=== PATIENT | male | born 1960 | race Caucasian/White ===

== ENCOUNTER 2020-08-29 11:23 | Inpatient (IN) | payer OTHER ==
[2020-08-29] MEDS ORDERED: Iopamidol-370 76% 500 ML 1 ML ONE (12:05)
[2020-08-29] MEDS ORDERED: Morphine 4 MG/ML VIAL ONE (12:07)
[2020-08-29 12:22] LABS: #Basophils 0.1 thou/uL (0.0-0.2); #Lymphocytes 1.5 thou/uL (1.20-3.40); #Neutrophils 15.9 thou/uL (1.40-6.50); %Basophils 0.3 % (0.0-1.0); %Eosinophils 0.2 % (0.0-10.0); %Lymphocytes 7.8 % (21.0-51.0); %Monocytes 5.6 % (0.0-10.0); %Neutrophils 86.2 % (42.0-75.0); Hemoglobin 14.2 g/dL (14.0-18.0); Mean Corpuscular HGB CONC 34.6 g/dL (32.0-36.0); Mean Corpuscular Hemoglobin 32.3 pg (27.0-31.0); Mean Corpuscular Volume 93.5 fL (78.0-98.0); Mean Platelet Volume 7.6 fL (7.4-10.4); Platelet Count 360 thou/uL (130-400); RBC Distribution Width 13.9 % (11.5-14.5); Red Blood Cell (RBC) Count 4.38 mill/uL (4.70-6.10); White Blood Cell (WBC) Count 18.5 thou/uL (4.8-10.8)
[2020-08-29 12:43] LABS: ALT (SGPT) 8 U/L (8-55); AST (SGOT) 11 U/L (5-34); Albumin 4.3 g/dL (3.4-4.8); Alkaline Phosphatase 85 U/L (40-110); Anion Gap 15 mmol/L (10-20); BUN (Urea Nitrogen) 14 mg/dL (8.4-25.7); Calc. Creatinine Clearance 0 mL/min (70-130); Calcium 9.7 mg/dL (7.8-10.44); Carbon Dioxide 25 mmol/L (23-31); Chloride 105 mmol/L (98-107); Globulin 3.5 g/dL (2.4-3.5); Glucose 115 mg/dL (80-115); Potassium 3.5 mmol/L (3.5-5.1); Protein, Total 7.8 g/dL (5.8-8.1); Sodium 141 mmol/L (136-145)
[2020-08-29 13:05] LABS: CKMB 0.9 ng/mL (0-6.6)
[2020-08-29 13:56] LABS: Bilirubin Negative (Negative); Blood, Urine Negative (Negative); Clarity Clear (Clear); Glucose, Urine (Dipstick) Normal (Negative); Ketone, Urine Negative (Negative); Leukocyte Negative Leu/uL (Negative); Nitrite Negative (Negative); Protein, Urine (Dipstick) 10 mg/dL (Neg-Trace); Urobilinogen Normal mg/dL (Less than 2)
[2020-08-29 13:57] LABS: Specific Gravity, Urine 1.049 (1.002-1.036)
[2020-08-29] MEDS ORDERED: HYDROmorphone 0.5 MG/0.5 ML SYRINGE ONE (14:25)
[2020-08-29] MEDS ORDERED: Ondansetron PF 4 MG/2 ML Vial ONE (14:25)
[2020-08-29 15:56] LABS: Lactic Acid 0.9 mmol/L (0.5-2.2)
[2020-08-29] MEDS ORDERED: Acetaminophen 650 MG Suppository PR PRN (16:31)
[2020-08-29] MEDS ORDERED: Acetaminophen 325 MG TAB PO PRN (16:31)
[2020-08-29 16:33] LABS: Troponin I Less than 0.010 ng/mL (< 0.028)
[2020-08-29 18:04] VITALS: BMI 19.5
[2020-08-29 18:56] LABS: Troponin I 0.019 ng/mL (< 0.028)
[2020-08-29] MEDS ORDERED: Lidocaine 5% Patch TD SCH (19:00)
[2020-08-29] MEDS: Morphine 2 MG/ML VIAL SLOW IVP PRN (20:01)
[2020-08-29] MEDS: Acetaminophen 500 MG TAB PO PRN (20:02)
[2020-08-29] MEDS: Atorvastatin Calcium 40 MG TAB PO SCH (20:03)
[2020-08-29] MEDS: Nicotine 14 MG PATCH TD SCH (20:03)
[2020-08-29] MEDS: Ketorolac Tromethamine 10 MG TAB PO SCH (20:03)
[2020-08-30] MEDS: Morphine 2 MG/ML VIAL SLOW IVP PRN ×7 (00:31→23:56)
[2020-08-30] MEDS: Ketorolac Tromethamine 10 MG TAB PO SCH ×4 (01:43→15:45)
[2020-08-30] MEDS: Acetaminophen 500 MG TAB PO PRN (04:33)
[2020-08-30 04:43] LABS: #Basophils 0.1 thou/uL (0.0-0.2); #Eosinphils 0.2 thou/uL (0.0-0.7); #Lymphocytes 2.6 thou/uL (1.20-3.40); #Monocytes 0.9 thou/uL (0.11-0.59); #Neutrophils 4.9 thou/uL (1.40-6.50); %Basophils 1.2 % (0.0-1.0); %Eosinophils 1.9 % (0.0-10.0); %Monocytes 9.8 % (0.0-10.0); %Neutrophils 57.1 % (42.0-75.0); Hemoglobin 13.2 g/dL (14.0-18.0); Mean Corpuscular HGB CONC 34.4 g/dL (32.0-36.0); Mean Corpuscular Hemoglobin 32.5 pg (27.0-31.0); Mean Corpuscular Volume 94.6 fL (78.0-98.0); Mean Platelet Volume 7.2 fL (7.4-10.4); Platelet Count 283 thou/uL (130-400); Red Blood Cell (RBC) Count 4.06 mill/uL (4.70-6.10); White Blood Cell (WBC) Count 8.7 thou/uL (4.8-10.8)
[2020-08-30 05:12] LABS: Anion Gap 11 mmol/L (10-20); BUN (Urea Nitrogen) 13 mg/dL (8.4-25.7); Calc. Creatinine Clearance 83 mL/min (70-130); Calcium 8.7 mg/dL (7.8-10.44); Carbon Dioxide 23 mmol/L (23-31); Cardiac Risk 3.2 (Less than 4.5); Chloride 107 mmol/L (98-107); Cholesterol 143 mg/dl (< 200 Desired); Glucose 87 mg/dL (80-115); HDL Cholesterol 45 mg/dL (>60 Neg Risk); LDL Cholesterol, Calculated 81 mg/dL; Potassium 3.3 mmol/L (3.5-5.1); Sodium 138 mmol/L (136-145); Triglycerides 83 mg/dL (Less than 150)
[2020-08-30] MEDS: Aspirin 81 mg Enteric Coated Tablet PO SCH (07:36)
[2020-08-30] MEDS ORDERED: HYDROmorphone 2 MG/ML VIAL SLOW IVP SCH (10:15)
[2020-08-30] MEDS ORDERED: Magnevist 469MG/ML 20 ML VIAL ONE (11:06)
[2020-08-30] MEDS: HYDROcodone/Acetaminophen 5/325 mg Tablet PO PRN ×4 (11:34→23:56)
[2020-08-30] MEDS ORDERED: Potassium Chloride 20 MEQ TAB PO SCH (15:45)
[2020-08-30] MEDS: Sodium Chloride 0.9% 1,000 ML IV SCH (19:57)
[2020-08-30] MEDS: Atorvastatin Calcium 40 MG TAB PO SCH (19:58)
[2020-08-30] MEDS: Nicotine 14 MG PATCH TD SCH (23:08)
[2020-08-31] MEDS: Ketorolac Tromethamine 10 MG TAB PO SCH ×4 (02:57→16:17)
[2020-08-31] MEDS: HYDROcodone/Acetaminophen 5/325 mg Tablet PO PRN ×5 (04:05→21:09)
[2020-08-31] MEDS: Morphine 2 MG/ML VIAL SLOW IVP PRN ×5 (04:06→21:11)
[2020-08-31] MEDS: Sodium Chloride 0.9% 1,000 ML IV SCH ×3 (04:07→21:04)
[2020-08-31 05:03] LABS: #Basophils 0.1 thou/uL (0.0-0.2); #Eosinphils 0.3 thou/uL (0.0-0.7); #Lymphocytes 2.9 thou/uL (1.20-3.40); #Monocytes 0.7 thou/uL (0.11-0.59); %Basophils 1.1 % (0.0-1.0); %Eosinophils 4.3 % (0.0-10.0); %Monocytes 9.6 % (0.0-10.0); Hemoglobin 12.8 g/dL (14.0-18.0); Mean Corpuscular HGB CONC 32.5 g/dL (32.0-36.0); Mean Corpuscular Hemoglobin 30.5 pg (27.0-31.0); Mean Corpuscular Volume 94.1 fL (78.0-98.0); Mean Platelet Volume 7.2 fL (7.4-10.4); Platelet Count 290 thou/uL (130-400); RBC Distribution Width 13.8 % (11.5-14.5); Red Blood Cell (RBC) Count 4.18 mill/uL (4.70-6.10)
[2020-08-31 05:21] LABS: Anion Gap 15 mmol/L (10-20); BUN (Urea Nitrogen) 17 mg/dL (8.4-25.7); Calc. Creatinine Clearance 87 mL/min (70-130); Calcium 8.6 mg/dL (7.8-10.44); Carbon Dioxide 20 mmol/L (23-31); Chloride 110 mmol/L (98-107); Glucose 75 mg/dL (80-115); Potassium 3.8 mmol/L (3.5-5.1); Sodium 141 mmol/L (136-145)
[2020-08-31] MEDS: Metoprolol Tartrate 25 MG TAB PO SCH ×2 (07:44→21:07)
[2020-08-31] MEDS: Aspirin 81 mg Enteric Coated Tablet PO SCH (07:44)
[2020-08-31] MEDS ORDERED: HYDROmorphone 0.5 MG/0.5 ML SYRINGE SLOW IVP SCH (10:45)
[2020-08-31] MEDS ORDERED: Iopamidol-370 76% 500 ML 1 ML ONE (11:28)
[2020-08-31] MEDS ORDERED: Sucralfate 1 GM TAB PO PRN (13:16)
[2020-08-31] MEDS: Gabapentin 400 MG CAP PO SCH ×2 (14:15→21:06)
[2020-08-31] MEDS: AMOXicillin 250 MG CAP PO SCH (21:05)
[2020-08-31] MEDS: Atorvastatin Calcium 20 MG TAB PO SCH (21:06)
[2020-08-31] MEDS: Atorvastatin Calcium 40 MG TAB PO SCH (21:06)
[2020-08-31] MEDS: Nicotine 14 MG PATCH TD SCH (21:19)
[2020-09-01] MEDS: Ketorolac Tromethamine 10 MG TAB PO SCH ×5 (00:47→20:14)
[2020-09-01] MEDS: HYDROcodone/Acetaminophen 5/325 mg Tablet PO PRN ×2 (01:43→06:38)
[2020-09-01] MEDS: Morphine 2 MG/ML VIAL SLOW IVP PRN ×3 (01:43→11:04)
[2020-09-01] MEDS: Sodium Chloride 0.9% 1,000 ML IV SCH ×2 (02:43→11:04)
[2020-09-01 04:50] LABS: #Basophils 0.1 thou/uL (0.0-0.2); #Eosinphils 0.5 thou/uL (0.0-0.7); #Lymphocytes 3.1 thou/uL (1.20-3.40); #Monocytes 0.9 thou/uL (0.11-0.59); %Basophils 1.4 % (0.0-1.0); %Eosinophils 6.3 % (0.0-10.0); %Monocytes 11.2 % (0.0-10.0); %Neutrophils 40.1 % (42.0-75.0); Hemoglobin 12.5 g/dL (14.0-18.0); Mean Corpuscular HGB CONC 34.6 g/dL (32.0-36.0); Mean Corpuscular Hemoglobin 32.8 pg (27.0-31.0); Mean Corpuscular Volume 94.8 fL (78.0-98.0); Mean Platelet Volume 7.7 fL (7.4-10.4); Platelet Count 262 thou/uL (130-400); RBC Distribution Width 13.9 % (11.5-14.5); Red Blood Cell (RBC) Count 3.82 mill/uL (4.70-6.10); White Blood Cell (WBC) Count 7.6 thou/uL (4.8-10.8)
[2020-09-01 05:12] LABS: Anion Gap 14 mmol/L (10-20); BUN (Urea Nitrogen) 14 mg/dL (8.4-25.7); Calc. Creatinine Clearance 93 mL/min (70-130); Calcium 8.2 mg/dL (7.8-10.44); Carbon Dioxide 17 mmol/L (23-31); Chloride 113 mmol/L (98-107); Glucose 78 mg/dL (80-115); Potassium 4.1 mmol/L (3.5-5.1); Sodium 140 mmol/L (136-145)
[2020-09-01] MEDS: Metoprolol Tartrate 25 MG TAB PO SCH ×2 (09:22→20:17)
[2020-09-01] MEDS: Amitriptyline HCl 25 MG TAB PO SCH (09:22)
[2020-09-01] MEDS: Gabapentin 400 MG CAP PO SCH ×3 (09:22→20:15)
[2020-09-01] MEDS: Aspirin 81 mg Enteric Coated Tablet PO SCH (09:22)
[2020-09-01] MEDS: Tamsulosin HCl 0.4 MG CAP PO SCH (09:22)
[2020-09-01] MEDS: AMOXicillin 250 MG CAP PO SCH ×3 (09:22→20:11)
[2020-09-01] MEDS ORDERED: Fentanyl 100 MCG/2 ML VIAL SLOW IVP PRN ×2 (13:42→18:11)
[2020-09-01] MEDS: Pregabalin 50 MG CAP PO SCH ×2 (15:05→20:13)
[2020-09-01] MEDS ORDERED: Methocarbamol 500 MG TAB PO PRN (16:55)
[2020-09-01] MEDS: Atorvastatin Calcium 20 MG TAB PO SCH (20:11)
[2020-09-01] MEDS: HYDROcodone/Acetaminophen 10/325 mg Tablet PO PRN (20:15)
[2020-09-02] MEDS: Nicotine 14 MG PATCH TD SCH (05:21)
[2020-09-02] MEDS: HYDROcodone/Acetaminophen 10/325 mg Tablet PO PRN ×3 (05:23→14:29)
[2020-09-02 05:28] LABS: Hemoglobin 12.9 g/dL (14.0-18.0); Mean Corpuscular HGB CONC 33.5 g/dL (32.0-36.0); Mean Corpuscular Hemoglobin 31.8 pg (27.0-31.0); Mean Platelet Volume 7.5 fL (7.4-10.4); Platelet Count 286 thou/uL (130-400); RBC Distribution Width 13.8 % (11.5-14.5); Red Blood Cell (RBC) Count 4.05 mill/uL (4.70-6.10); White Blood Cell (WBC) Count 6.2 thou/uL (4.8-10.8)
[2020-09-02 05:51] LABS: Anion Gap 15 mmol/L (10-20); BUN (Urea Nitrogen) 16 mg/dL (8.4-25.7); Calc. Creatinine Clearance 88 mL/min (70-130); Calcium 8.7 mg/dL (7.8-10.44); Carbon Dioxide 21 mmol/L (23-31); Chloride 108 mmol/L (98-107); Glucose 90 mg/dL (80-115); Potassium 3.8 mmol/L (3.5-5.1); Sodium 140 mmol/L (136-145)
[2020-09-02] MEDS: Ketorolac Tromethamine 10 MG TAB PO SCH ×3 (06:11→15:28)
[2020-09-02] MEDS: Gabapentin 400 MG CAP PO SCH ×2 (07:57→15:27)
[2020-09-02] MEDS: Aspirin 81 mg Enteric Coated Tablet PO SCH (07:57)
[2020-09-02] MEDS: Metoprolol Tartrate 25 MG TAB PO SCH (07:58)
[2020-09-02] MEDS: Amitriptyline HCl 25 MG TAB PO SCH (07:58)
[2020-09-02] MEDS: Tamsulosin HCl 0.4 MG CAP PO SCH (07:58)
[2020-09-02] MEDS: Pregabalin 50 MG CAP PO SCH ×2 (07:58→15:27)
[2020-09-02] MEDS: AMOXicillin 250 MG CAP PO SCH ×2 (07:59→15:26)
[2020-09-02] MEDS ORDERED: Iopamidol-370 76% 500 ML 1 ML ONE (09:03)
[2020-09-02] MEDS ORDERED: hydrALAZINE 25 MG TAB PO SCH (09:14)
[2020-09-02] MEDS ORDERED: Lisinopril 5 MG TAB PO SCH (09:30)
[2020-09-02 16:42] VITALS: BP 182/87; TEMP 97.7
[2020-09-02] MEDS ORDERED: Lidocaine 5% Patch TD SCH (17:00)
[2020-09-03] MEDS ORDERED: Lidocaine Patch Removal TOP SCH (05:00)
[2020-09-03] MEDS ORDERED: Lisinopril 5 MG TAB PO SCH (09:00)
== END 2020-09-02 17:45 | disposition home or self-care (01) | DRG 308 ==
LOC: ERS 11:23 → 2SW 15:25 → OBSVTOIN 08-31 14:22
PROVIDERS: ADMIT Internal Medicine; ATTEND Internal Medicine
DX: R00.0 Tachycardia, unspecified (principal); E43 Unspecified severe protein-calorie malnutrition; Z68.1 Body mass index [BMI] 19.9 or less, adult; I95.1 Orthostatic hypotension; I42.9 Cardiomyopathy, unspecified; R91.1 Solitary pulmonary nodule; I77.810 Thoracic aortic ectasia; Z20.822 Contact with and (suspected) exposure to COVID-19; E78.5 Hyperlipidemia, unspecified; M27.2 Inflammatory conditions of jaws; M47.816 Spondylosis without myelopathy or radiculopathy, lumbar region; G89.29 Other chronic pain; R77.8 Other specified abnormalities of plasma proteins; L57.0 Actinic keratosis; Z86.73 Personal history of transient ischemic attack (TIA), and cerebral infarction without residual deficits; Z86.19 Personal history of other infectious and parasitic diseases; Z90.49 Acquired absence of other specified parts of digestive tract; Z87.891 Personal history of nicotine dependence; Z79.899 Other long term (current) drug therapy
CPT/HCPCS: 36415; 70450; 70487; 70553; 71260; 71275; 72050; 72072; 72125; 74174; 74177; 80048; 80053; 80061; 81003; 82306; 82533; 82553; 83605; 83735; 83880; 84146; 84443; 84484; 85025; 85027; 93005; 93306; 95712; 95819; 95957; 96374; 96375; 96376; A9579; G0378; J1170; J2270; J2405; J3010; Q9967